=== PATIENT | male | born 1980 | race Caucasian/White ===

== ENCOUNTER 2021-07-01 18:05 | Emergency (ER) | payer SELFPAY ==
--- NOTE | 2021-07-01 18:22 | EDPHYS ---
Physician Documentation [facility] Name: Kenneth Franco Age: 41 yrs Sex: Male : 1980 Arrival Date: 07/01/2021 Time: 18:16 Bed Waiting Private MD: ED Physician Paula Cespedes HPI: 07/01 18:26 This 41 yrs old Male presents to ER via Ambulatory with complaints of Rash. kb 18:26 The patient's rash thought to be caused by Contact allergy. The rash is located on the kb body diffusely. The rash can be described as erythematous. Onset: The symptoms/episode began/occurred yesterday. Associated signs and symptoms: Pertinent positives: itching, Pertinent negatives: burning sensation, difficulty breathing, fever, nausea, Pain swelling of lips, swelling of throat, swelling of tongue, vomiting, wheezing. Severity of symptoms: At their worst the symptoms were moderate in the emergency department the symptoms are unchanged. The patient has not experienced similar symptoms in the past. The patient has not recently seen a physician. Pt reports he got into poison magaly yesterday and developed rash all over. Historical: - Allergies: 18:34 No Known Allergies; iw - Social history:: Smoking status: . ROS: 18:25 Constitutional: Negative for fever, chills, and weight loss. kb 18:25 Skin: Positive for rash, diffusely. 18:25 All other systems are negative. Exam: 18:25 Constitutional: This is a well developed, well nourished patient who is awake, alert, kb and in no acute distress. Head/Face: Normocephalic, atraumatic. ENT: Moist Mucous membranes Respiratory: Respirations even and unlabored. No increased work of breathing, no retractions or nasal flaring. MS/ Extremity: Pulses equal, no cyanosis. Neurovascular intact. Full, normal range of motion. Neuro: Awake and alert, GCS 15, oriented to person, place, time, and situation. Moves all extremities. Normal gait. Psych: Awake, alert, with orientation to person, place and time. Behavior, mood, and affect are within normal limits. 18:25 Skin: consistent with contact dermatitis, and is diffusely located. Vital Signs: 18:35 BP 150 / 84; Pulse 75; Resp 16; Temp 98.3; Pulse Ox 100% on R/A; iw MDM: 18:22 Patient medically screened. kb 18:24 Data reviewed: vital signs, nurses notes. Data interpreted: Pulse oximetry: on room air kb is 100 %. Interpretation: normal. Counseling: I had a detailed discussion with the patient and/or guardian regarding: the historical points, exam findings, and any diagnostic results supporting the discharge/admit diagnosis, the need for outpatient follow up, a family practitioner, to return to the emergency department if symptoms worsen or persist or if there are any questions or concerns that arise at home. Administered Medications: 18:34 Drug: predniSONE 40 mg Route: PO; iw 18:34 Drug: Pepcid (famotidine) 20 mg Route: PO; iw Disposition Summary: 07/01/21 18:22 Discharge Ordered Location: Home kb Condition: Stable kb Diagnosis - Allergic contact dermatitis due to plants, except food kb Followup: kb - With: Emergency Department - When: As needed - Reason: Worsening of condition Followup: kb - With: Private Physician - When: 2 - 3 days - Reason: Recheck today's complaints, Continuance of care, Re-evaluation by your physician Discharge Instructions: - Discharge Summary Sheet kb - Poison Magaly Dermatitis, [id number] kb - Contact Dermatitis, [id number] kb Forms: - Medication Reconciliation Form kb - Thank You Letter kb - Antibiotic Education kb - Prescription Opioid Use kb Prescriptions: - Pepcid 20 mg Oral Tablet - take 1 tablet by ORAL route every 12 hours for 5 days; 10 tablet; Refills: 0, kb Product Selection Permitted - Prednisone 20 mg Oral Tablet - take 1 tablet by ORAL route once daily for 5 days; 5 tablet; Refills: 0, kb Product Selection Permitted Addendum: 07/10/2021 22:54 Co-signature as Attending Physician, Paula Cespedes MD. valentin a2 Signatures: Jolly Martins FNP-C FNP-Melodie Elizabeth, J LUIS RN Paula Cespedes MD MD ma2
--- NOTE | 2021-07-01 18:22 | ER ---
Nurse's Notes [facility] Name: Kenneth Franco Age: 41 yrs Sex: Male : 1980 Arrival Date: 07/01/2021 Time: 18:16 Bed Waiting Private MD: Diagnosis: Allergic contact dermatitis due to plants, except food Presentation: 07/01 18:21 Chief complaint: Patient states: poison [place] since yesterday , diffuse itchy rash. iw Coronavirus screen: At this time, the client does not indicate any symptoms associated with coronavirus-19. Ebola Screen: Patient negative for fever greater than or equal to 101.5 degrees Fahrenheit, and additional compatible Ebola Virus Disease symptoms Patient denies exposure to infectious person. Patient denies travel to an Ebola-affected area in the 21 days before illness onset. No symptoms or risks identified at this time. Initial Sepsis Screen: Does the patient meet any 2 criteria? No. Patient's initial sepsis screen is negative. Does the patient have a suspected source of infection? No. Patient's initial sepsis screen is negative. Risk Assessment: Do you want to hurt yourself or someone else? Patient reports no desire to harm self or others. Onset of symptoms was July 01, 2021. 18:21 Method Of Arrival: Ambulatory iw 18:21 Acuity: JERMAINE 5 iw Historical: - Allergies: 18:34 No Known Allergies; iw - Social history:: Smoking status: . Vital Signs: 18:35 BP 150 / 84; Pulse 75; Resp 16; Temp 98.3; Pulse Ox 100% on R/A; iw ED Course: 18:16 Patient arrived in ED. as 18:17 [facility]C [facility] kb 18:17 Paula Cespedes MD is Attending Physician. kb 18:22 Triage completed. iw 18:35 Arm band placed on. iw Administered Medications: 18:34 Drug: predniSONE 40 mg Route: PO; iw 18:34 Drug: Pepcid (famotidine) 20 mg Route: PO; iw Outcome: 18:22 Discharge ordered by . kb 18:35 Patient left the ED. iw Signatures: Jolly Martins FNP-C FNP-Ckb Martinez, Amelia as Williams, Irene, RN RN iw
[2021-07-01 18:39] VITALS: BP 150/84; TEMP 98.3; O2SAT 100
[2021-07-01] MEDS ORDERED: predniSONE 20 MG TAB ONE (18:51)
[2021-07-01] MEDS ORDERED: FAMOTIDINE 20 MG TAB ONE (18:51)
== END 2021-07-01 18:35 | disposition home or self-care (01) ==
LOC: ER 18:05
DX: R21 Rash and other nonspecific skin eruption (principal); L23.7 Allergic contact dermatitis due to plants, except food
CPT/HCPCS: 99282; J7512

== ENCOUNTER 2021-09-15 16:48 | Emergency (ER) | payer SELFPAY ==
--- OUTSIDE RECORDS SUMMARY | 2021-09-15 16:51 | XMS REPORT | Continuity of Care Document ---
:[address] [facility] t Address [address] [place] [address] Care Team Providers Name Role Phone Cristino Townsend Attending Clinician Cristino CRUZ Attending Clinician Unavailable Robert Gomez MD Attending Clinician Robert GOMEZ Attending Clinician Unavailable Doctor Unassigned, Name Attending Clinician Unavailable PoFeliz guevara Main Attending Clinician Unavailable Pcp, Does Not Have A Attending Clinician Cristino Marroquin Attending Clinician Problems Condition Condition Condition Status Onset Resolution Last Treating Co mments Source Name Details Category Date Date Treatment Clinician Date No known No known Disease Unive rs active active ity of problems problems [facility] Allergies, Adverse Reactions, Alerts Allergy Allergy Status Severity Reaction(s) Onset Inactive Treating Comm ents Source Name Type Date Date Clinician NO KNOWN Drug Active Univers ALLERGIE Class ity of S [facility] Social History Social Habit Start Date Stop Date Quantity Comments Source Sex Assigned At Universit y of [facility] Exposure to Not sure [facility] SARS-CoV-2 [facility] (event) Branch Tobacco use and 2020-07-26 2020-07-26 Never used Universit y of exposure 00:00:00 00:00:00 [facility] Alcohol intake 2020-07-26 2020-07-26 Lifetime University of 00:00:00 00:00:00 non-drinker [facility] (finding) Branch History SDOH 2020-07-26 2020-07-26 1 University o f Alcohol Frequency 00:00:00 00:00:00 [place] [facility] History SDOH 2020-07-26 2020-07-26 99 University o f Alcohol Std 00:00:00 00:00:00 [place] [facility] Branch History SDOH 2020-07-26 2020-07-26 1 University o f Alcohol Binge 00:00:00 00:00:00 [facility] al Branch Smoking Status Start Date Stop Date Source Current every day smoker 2020-07-26 00:00:00 [facility] [place] Unknown if ever smoked [facility] Branch Medications Ordered Filled Start Stop Current Ordering Indication Dosage Frequency Signature Comments Components Source Medication Medication Date Date Medication? Clinician (SIG) Name Name traMADoL 50 0 Yes 4647 50mg Take 1 Univ ers mg tablet 1-06 tablet by ity o f 00:00: mouth [place] 00 every 4 Medical (four) Branch hours as needed for Pain (scale 7-10). Indication s: acute pain traMADoL 50 0 Yes 4647 50mg Take 1 Univ ers mg tablet 1-06 tablet by ity o f 00:00: mouth [place] 00 every 4 Medical (four) Branch hours as needed for Pain (scale 7-10). Indication s: acute pain traMADoL 50 Yes 4647 50mg Take 1 Univ ers mg tablet 1-06 tablet by ity o f 00:00: mouth [place] 00 every 4 Medical (four) Branch hours as needed for Pain (scale 7-10). Indication s: acute pain acetaminoph 2019-09 No 4647 1{tbl} Take 1 U nivers en-codeine 2-14 12-22 tablet by ity of (TYLENOL-CO 00:00: 05:59 [place] DE[place] #3[place] :00 every 4 Medical 300-30 mg (four) Branch tablet hours as needed for Pain (scale 4-6) for up to 7 days. Indication s: acute pain acetaminoph 2019-09 No 4647 1{tbl} Take 1 U nivers en-codeine 2-14 12-22 tablet by ity of (TYLENOL-CO 00:00: 05:[place] DE[place] #3[place] 00 :00 every 4 Medical 300-30 mg (four) Branch tablet hours as needed for Pain (scale 4-6) for up to 7 days. Indication s: acute pain acetaminoph 2019-09 No 4647 1{tbl} Take 1 U nivers en-codeine 2-14 12-22 tablet by ity of (TYLENOL-CO 00:00: 05:59 [place] DE[place] #3[place] 00 :00 every 4 Medical 300-30 mg (four) Branch tablet hours as needed for Pain (scale 4-6) for up to 7 days. Indication s: acute pain acetaminoph 2019- 2020- No 4647 1{tbl} Take 1 U nivers en-codeine 2-14 12-22 tablet by ity of (TYLENOL-CO 00:00: 05:[place] DE[place] #3[place] 00 :00 every 4 Medical 300-30 mg (four) Branch tablet hours as needed for Pain (scale 4-6) for up to 7 days. Indication s: acute pain acetaminoph 2020- Yes 4647 1{tbl} Take 1 Un pratibha en-codeine 1-14 tablet by ity of 300-30 mg 00:00: mouth [place] tablet 00 every 4 Medical (four) Branch hours as needed for Pain (scale 4-6). Indication s: acute pain acetaminoph 2020- Yes 4647 1{tbl} Take 1 Un pratibha en-codeine 1-14 tablet by ity of 300-30 mg 00:00: mouth [place] tablet 00 every 4 Medical (four) Branch hours as needed for Pain (scale 4-6). Indication s: acute pain acetaminoph 2020- Yes 4647 1{tbl} Take 1 Un pratibha en-codeine 1-14 tablet by ity of 300-30 mg 00:00: mouth [place] tablet 00 every 4 Medical (four) Branch hours as needed for Pain (scale 4-6). Indication s: acute pain acetaminoph 2020- Yes 4647 1{tbl} Take 1 Un pratibha en-codeine 1-14 tablet by ity of 300-30 mg 00:00: mouth [place] tablet 00 every 4 Medical (four) Branch hours as needed for Pain (scale 4-6). Indication s: acute pain acetaminoph 2020- Yes 4647 1{tbl} Take 1 Un pratibha en-codeine 1-14 tablet by ity of 300-30 mg 00:00: mouth [place] tablet 00 every 4 Medical (four) Branch hours as needed for Pain (scale 4-6). Indication s: acute pain acetaminoph 2020- Yes 4647 1{tbl} Take 1 Un pratibha en-codeine 1-14 tablet by ity of 300-30 mg 00:00: mouth [place] tablet 00 every 4 Medical (four) Branch hours as needed for Pain (scale 4-6). Indication s: acute pain acetaminoph 2020-1 Yes 4647 1{tbl} Take 1 Un pratibha en-codeine 1-14 tablet by ity of 300-30 mg 00:00: mouth [place] tablet 00 every 4 Medical (four) Branch hours as needed for Pain (scale 4-6). Indication s: acute pain acetaminoph 2020-1 Yes 4647 1{tbl} Take 1 Un pratibha en-codeine 1-14 tablet by ity of 300-30 mg 00:00: mouth [place] tablet 00 every 4 Medical (four) Branch hours as needed for Pain (scale 4-6). Indication s: acute pain acetaminoph 2020-1 Yes 4647 1{tbl} Take 1 Un pratibha en-codeine 1-14 tablet by ity of 300-30 mg 00:00: mouth [place] tablet 00 every 4 Medical (four) Branch hours as needed for Pain (scale 4-6). Indication s: acute pain acetaminoph 2020-1 Yes 4647 1{tbl} Take 1 Un pratibha en-codeine 1-14 tablet by ity of 300-30 mg 00:00: mouth [place] tablet 00 every 4 Medical (four) Branch hours as needed for Pain (scale 4-6). Indication s: acute pain acetaminoph 2020-1 Yes 4647 1{tbl} Take 1 Un pratibha en-codeine 1-14 tablet by ity of 300-30 mg 00:00: mouth [place] tablet 00 every 4 Medical (four) Branch hours as needed for Pain (scale 4-6). Indication s: acute pain acetaminoph 2020-1 Yes 4647 1{tbl} Take 1 Un pratibha en-codeine 1-14 tablet by ity of 300-30 mg 00:00: mouth [place] tablet 00 every 4 Medical (four) Branch hours as needed for Pain (scale 4-6). Indication s: acute pain acetaminoph 2020-1 Yes 4647 1{tbl} Take 1 Un pratibha en-codeine 1-14 tablet by ity of 300-30 mg 00:00: mouth [place] tablet 00 every 4 Medical (four) Branch hours as needed for Pain (scale 4-6). Indication s: acute pain acetaminoph 2020-1 Yes 4647 1{tbl} Take 1 Un pratibha en-codeine 1-14 tablet by ity of 300-30 mg 00:00: mouth [place] tablet 00 every 4 Medical (four) Branch hours as needed for Pain (scale 4-6). Indication s: acute pain acetaminoph 2020-1 Yes 4647 1{tbl} Take 1 Un pratibha en-codeine 1-14 tablet by ity of 300-30 mg 00:00: mouth [place] tablet 00 every 4 Medical (four) Branch hours as needed for Pain (scale 4-6). Indication s: acute pain acetaminoph 2020-1 Yes 4647 1{tbl} Take 1 Un pratibha en-codeine 1-14 tablet by ity of 300-30 mg 00:00: mouth [place] tablet 00 every 4 Medical (four) Branch hours as needed for Pain (scale 4-6). Indication s: acute pain acetaminoph 2020-1 Yes 4647 1{tbl} Take 1 Un pratibha en-codeine 1-14 tablet by ity of 300-30 mg 00:00: mouth [place] tablet 00 every 4 Medical (four) Branch hours as needed for Pain (scale 4-6). Indication s: acute pain acetaminoph 2020-1 Yes 4647 1{tbl} Take 1 Un pratibha en-codeine 1-14 tablet by ity of 300-30 mg 00:00: mouth [place] tablet 00 every 4 Medical (four) Branch hours as needed for Pain (scale 4-6). Indication s: acute pain acetaminoph 2020-1 Yes 4647 1{tbl} Take 1 Un pratibha en-codeine 1-14 tablet by ity of 300-30 mg 00:00: mouth [place] tablet 00 every 4 Medical (four) Branch hours as needed for Pain (scale 4-6). Indication s: acute pain amphetamine 2020-1 Yes 30mg Take 30 mg Univers -dextroamph 0-23 by mouth ity of etamine 30 00:00: every [place] mg 24 hr 00 morning. Medical capsule Branch amphetamine 2020-1 Yes 30mg Take 30 mg Univers -dextroamph 0-23 by mouth ity of etamine 30 00:00: every [place] mg 24 hr 00 morning. Medical capsule Branch amphetamine 2020-1 Yes 30mg Take 30 mg Univers -dextroamph 0-23 by mouth ity of etamine 30 00:00: every [place] mg 24 hr 00 morning. Medical capsule Branch amphetamine 2019-09 Yes 30mg Take 30 mg Univers -dextroamph 0-23 by mouth ity of etamine 30 00:00: every [place] mg 24 hr 00 morning. Medical capsule Branch amphetamine 2019-09 Yes 30mg Take 30 mg Univers -dextroamph 0-23 by mouth ity of etamine 30 00:00: every [place] mg 24 hr 00 morning. Medical capsule Branch amphetamine 2019-09 Yes 30mg Take 30 mg Univers -dextroamph 0-23 by mouth ity of etamine 30 00:00: every [place] mg 24 hr 00 morning. Medical capsule Branch amphetamine 2019-09 Yes 30mg Take 30 mg Univers -dextroamph 0-23 by mouth ity of etamine 30 00:00: every [place] mg 24 hr 00 morning. Medical capsule Branch amphetamine 2019-09 Yes 30mg Take 30 mg Univers -dextroamph 0-23 by mouth ity of etamine 30 00:00: every [place] mg 24 hr 00 morning. Medical capsule Branch amphetamine 2019-09 Yes 30mg Take 30 mg Univers -dextroamph 0-23 by mouth ity of etamine 30 00:00: every [place] mg 24 hr 00 morning. Medical capsule Branch amphetamine 2019-09 Yes 30mg Take 30 mg Univers -dextroamph 0-23 by mouth ity of etamine 30 00:00: every [place] mg 24 hr 00 morning. Medical capsule Branch amphetamine 2019-09 Yes 30mg Take 30 mg Univers -dextroamph 0-23 by mouth ity of etamine 30 00:00: every [place] mg 24 hr 00 morning. Medical capsule Branch amphetamine 2019-09 Yes 30mg Take 30 mg Univers -dextroamph 0-23 by mouth ity of etamine 30 00:00: every [place] mg 24 hr 00 morning. Medical capsule Branch amphetamine 2019-09 Yes 30mg Take 30 mg Univers -dextroamph 0-23 by mouth ity of etamine 30 00:00: every [place] mg 24 hr 00 morning. Medical capsule Branch amphetamine 2019-09 Yes 30mg Take 30 mg Univers -dextroamph 0-23 by mouth ity of etamine 30 00:00: every [place] mg 24 hr 00 morning. Medical capsule Branch amphetamine 2019-09 Yes 30mg Take 30 mg Univers -dextroamph 0-23 by mouth ity of etamine 30 00:00: every [place] mg 24 hr 00 morning. Medical capsule Branch amphetamine 2020- Yes 30mg Take 30 mg Univers -dextroamph 0-23 by mouth ity of etamine 30 00:00: every [place] mg 24 hr 00 morning. Medical capsule Branch amphetamine 2020- Yes 30mg Take 30 mg Univers -dextroamph 0-23 by mouth ity of etamine 30 00:00: every [place] mg 24 hr 00 morning. Medical capsule Branch diazePAM 5 2019-09 Yes 5mg Take 5 mg Un pratibha mg tablet 0-13 by mouth 2 ity of 00:00: (two) [place] 00 times Medical daily. Branch diazePAM 5 2019- Yes 5mg Take 5 mg Un pr[place]ibha mg tablet 0-13 by mouth 2 ity of 00:00: (two) [place] 00 times Medical daily. Branch diazePAM 5 2019-09 Yes 5mg Take 5 mg Un pratibha mg tablet 0-13 by mouth 2 ity of 00:00: (two) [place] 00 times Medical daily. Branch diazePAM 5 2019-09 Yes 5mg Take 5 mg Un pratibha mg tablet 0-13 by mouth 2 ity of 00:00: (two) [place] 00 times Medical daily. Branch diazePAM 5 2019-09 Yes 5mg Take 5 mg Un pratibha mg tablet 0-13 by mouth 2 ity of 00:00: (two) [place] 00 times Medical daily. Branch diazePAM 5 2019-09 Yes 5mg Take 5 mg Un pr[place]ibha mg tablet 0-13 by mouth 2 ity of 00:00: (two) [place] 00 times Medical daily. Branch diazePAM 5 2019-09 Yes 5mg Take 5 mg Un pr[place]ibha mg tablet 0-13 by mouth 2 ity of 00:00: (two) [place] 00 times Medical daily. Branch diazePAM 5 2019-09 Yes 5mg Take 5 mg Un [place] mg tablet 0-13 by mouth 2 ity of 00:00: (two) [place] 00 times Medical daily. Branch diazePAM 5 2019-09 Yes 5mg Take 5 mg Un pratibha mg tablet 0-13 by mouth 2 ity of 00:00: (two) [place] 00 times Medical daily. Branch diazePAM 5 2019-09 Yes 5mg Take 5 mg Un pratibha mg tablet 0-13 by mouth 2 ity of 00:00: (two) [place] 00 times Medical daily. Branch diazePAM 5 2020-1 Yes 5mg Take 5 mg Un pr[place]ibha mg tablet 0-13 by mouth 2 ity of 00:00: (two) [place] 00 times Medical daily. Branch diazePAM 5 2019-09 Yes 5mg Take 5 mg Un pr[place]ibha mg tablet 0-13 by mouth 2 ity of 00:00: (two) [place] 00 times Medical daily. Branch diazePAM 5 2019-09 Yes 5mg Take 5 mg Un pr[place]ibha mg tablet 0-13 by mouth 2 ity of 00:00: (two) [place] 00 times Medical daily. Branch diazePAM 5 2019-09 Yes 5mg Take 5 mg Un [place] mg tablet 0-13 by mouth 2 ity of 00:00: (two) [place] 00 times Medical daily. Branch diazePAM 5 2019-09 Yes 5mg Take 5 mg Un [place] mg tablet 0-13 by mouth 2 ity of 00:00: (two) [place] 00 times Medical daily. Branch diazePAM 5 2019-09 Yes 5mg Take 5 mg Un pr[place] mg tablet 0-13 by mouth 2 ity of 00:00: (two) [place] 00 times Medical daily. Branch diazePAM 5 2019-09 Yes 5mg Take 5 mg Un pr[place]ha mg tablet 0-13 by mouth 2 ity of 00:00: (two) [place] 00 times Medical daily. Branch Vital Signs Vital Name Observation Time Observation Value Comments Source Systolic blood 2020-09-14 19:43:00 114 mm[Hg] Univer sity [facility] Diastolic blood 2020-09-14 19:43:00 77 mm[Hg] Unive rsity [facility] Heart rate 2020-09-14 19:43:00 84 /min [facility] Body height 2020-09-14 19:43:00 180.3 cm [facility] Body weight 2020-09-14 19:43:00 72.576 kg [facility] BMI 2020-09-14 19:43:00 22.32 kg/m2 [facility] Systolic blood 2020-08-24 19:46:00 121 mm[Hg] Univer sity [facility] Diastolic blood 2020-08-24 19:46:00 73 mm[Hg] Unive rsity of [facility] Heart rate 2020-08-24 19:46:00 63 /min [facility] Body height 2020-08-24 19:46:00 180.3 cm Universi ty of [place] [facility] Body weight 2020-08-24 19:46:00 72.394 kg Universi ty of [place] [facility] BMI 2020-08-24 19:46:00 22.26 kg/m2 Universi ty of [facility] Branch Systolic blood 2020-07-26 19:22:00 131 mm[Hg] Univer sity of pressure [facility] Diastolic blood 2020-07-26 19:22:00 85 mm[Hg] Unive rsity of pressure [facility] Branch Heart rate 2020-07-26 19:22:00 76 /min Universi ty of [facility] Branch Body height 2020-07-26 19:22:00 177.8 cm Universi ty of [facility] Branch Body weight 2020-07-26 19:22:00 79.379 kg Universi ty of [facility] Branch BMI 2020-07-26 19:22:00 25.11 kg/m2 Universi ty of [facility] Branch Systolic blood 2020-07-23 16:54:00 100 mm[Hg] Univer sity of pressure [facility] Branch Diastolic blood 2020-07-23 16:54:00 71 mm[Hg] Unive rsity of pressure [facility] Branch Heart rate 2020-07-23 16:54:00 88 /min Universi ty of [facility] Body temperature 2020-07-23 16:54:00 36.33 Katrin [facility] 2020-07-23 16:54:00 20 /min [facility] Body weight 2020-07-23 16:54:00 79.379 kg Universi ty of [facility] Oxygen saturation in 2020-07-23 16:54:00 100 /min [facility] Arterial blood by [facility] Pulse oximetry Branch Procedures Procedure Date / Time Performing Clinician Source Performed XR HAND <3 VW RIGHT 2020-09-14 19:45:03 [facility] XR HAND <3 VW RIGHT 2020-08-24 20:09:11 Nile Cruz Universi ty [facility] NON [facility] 2020-08-03 06:01:00 Doctor Unassigned, No Univ [facility] DOCUMENTATION Name Medical Branch XR CHEST 1 VW 2020-07-29 18:59:03 Kojo Gomez [facility] CONSENT/REFUSAL FOR 2020-07-26 19:13:17 Doctor Unassigned, No [facility] XR HAND 3+ VW RIGHT 2020-07-23 17:29:23 Windy Azevedo [facility] NOTICE OF PRIVACY 2020-07-23 16:48:00 Doctor Unassigned, No [facility] Name [facility] Encounters Start End Encounter Admission Attending Care Care Encounter Source Date/Time Date/Time Type Type Clinicians Facility Department ID 2020-09-14 2020-09-14 [facility] [id number] Univers 13:45:02 23:59:00 Encounter Nile Gregg [facility] [id number] ity of Surgical [id number] [place] as Specialti [phone] Me dical es 809 [facility]3] 2020-09-14 2020-09-14 Office [facility] [id number] Univers 13:39:17 13:54:17 Visit Nile Gregg [facility] [id number] it y of Surgical [id number] [place] Specialti [phone] Me dical es 198 [facility]3] 2020-09-14 2020-09-14 [facility] [id number] Univers 13:15:00 13:15:00 [facility] [id number]-14 2020-09-14 [facility] [id number] Univers 13:15:00 13:15:00 [facility] 2020-08-24 2020-08-24 [facility] [id number] Univers 14:09:11 23:59:00 Encounter Nile [facility] [id number] ity of Surgical [id number] [place] Specialti [phone] Me dical es 809 [facility]3] 2020-08-24 2020-08-24 [facility] [id number] Univers 13:45:00 13:45:[id number] [address]y [facility] 2020-08-24 2020-08-24 Outpatient [facility] [id number] Univers 13:45:00 13:45:00 NILE ity of [facility] 2020-08-24 2020-08-24 [facility] [id number] Univers 13:29:37 13:44:37 Visit Nile Mccoy [id number] it y of Surgical [id number] [place] Specialti [phone] Me dical es 198 [facility]3] 2020-08-18 2020-08-18 Telephone [facility] [id number] Univers 00:00:00 00:00:00 Nile Gregg [facility] [id number] it y of Surgical [id number] [place] Specialti [phone] [place] 198 [facility]3] 2020-08-03 2020-08-03 [facility] [id number] Univers 11:52:00 23:59:00 Encounter Kojo MAHAJAN [id number] [id number] [id number] [facility] [address] [place] 2020-08-03 2020-08-03 [facility] N[facility] [id number] Univers 00:00:00 00:00:[address] [facility] 2020-08-03 2020-08-03 Orders Doctor PRABHAKAR [id number] Univers 00:00:00 00:00:00 Only Unassigned, DUKE [id number] ity of [facility] [id number] [place] as [phone] [facility] 00[address] [place] 2020-07-29 2020-07-29 [facility] [id number] Univers 12:36:50 23:59:00 Encounter Kojo [place] [id number] ity [id number] [phone] [facility] 807 [place] 2020-07-29 2020-07-29 Row Boss Hoeing [place], Adc Lab Main [facility] [id number] Univers 12:32:50 12:47:50 Visit Kojo Gomez [place] [id number] ity of [id number] [phone] [place] dical nal 353 [facility] 2020-07-29 2020-07-[address] [facility] [id number] Univers 12:30:00 12:30:[address] [facility] 2020-07-29 2020-07-29 [facility] [id number] Univers 12:30:00 12:30:[address] [facility] 2020-07-29 2020-07-29 Telephone [facility], [facility] [id number] Univers 00:00:00 00:00:00 Patient PRIMARY [id number] it y of Does Not CARE [id number] [place] as Have A PAVILLION [id number] [place] dical 198 [place] 2020-07-28 2020-07-28 Telephone Jason [facility] [id number] Univers 00:00:00 00:00:00 Kojo Jones [facility] [id number] it y of Surgical [id number] [place] Specialti [id number] [place] dical es 198 [facility]3] 2020-07-26 2020-07-26 Outpatient R KELSEA [facility] [id number] Univers 13:45:00 13:45:[address] [facility] 2020-07-26 2020-07-26 Office Kelsea [facility] [id number] Univers 13:14:20 13:29:20 Visit Nile Gregg [facility] [id number] it y of Surgical [id number] [place] Specialti [phone] [place] dical [place] 198 [facility]3] 2020-07-26 2020-07-26 Orders Doctor RADFORD [id number] Univers 00:00:00 00:00:00 Only Unassigned, DUKE [id number] ity of [facility] 4.2.7.2.686 [place] as [id number] [facility] 009 [place] 2020-07-26 2020-07-26 Telephone Jason [facility] [id number] Univers 00:00:00 00:00:00 Kojo Jones Health [id number] it y of Surgical [id number] [place] Specialti [id number] [place] dical es 198 [facility]3] 2020-07-26 2020-07-26 Telephone Kelsea [facility] [id number] Univers 00:00:00 00:00:00 Nile Gregg [facility] [id number] it y of Surgical [id number] [place] Specialti [phone] [place] dical es 198 [facility]3] 2020-07-23 2020-07-23 Emergency Jolly, [facility] [id number] Univers 10:58:00 12:29:00 Windy Gregg [place] [id number] i ty of [id number] [id number] [facility] 084 [place] 2020-07-23 2020-07-23 Emergency X [facility] ERT [id number] Univers 10:48:00 10:48:00 ity of [facility] Results Test Description Test Time Test Comments Results Result Sour e Comments XR HAND <3 2020-09-0 Comminuted fracture Un iversity of RIGHT 6 of the proximal fifth [facility] Medical 20:00:38 metacarpal shows some Bra nch signs of healing XR HAND <3 2020-08-1 Comminuted fracture Un iversity of RIGHT 6 proximal fifth [facility] 20:45:30 metatacarpal with 2 Branc h pins in place show signs of callus formation. XR CHEST 1 2020-07-11 Impression: No acute U niversity of 0 cardiac pulmonary [facility] edical 19:03:48 abnormality.Exam: XR Bran CHEST 1 07/29/2020 12:56 PM Clinical History: Surgery Comparison: None Technique: frontal view of the chest Findings: The lungs are clear. ?No pleural effusion. ?No pneumothorax. The cardiomediastinal silhouette appears normal. No acute osseous abnormality. [facility], Radiant Results Inft User - 07/29/2020 1:05 PM CSTExam: XR CHEST 1 VW 07/29/2020 12:56 PMClinical History: Surgery Comparison: NoneTechnique: frontal view of the chestFindings:The lungs are clear. No pleural effusion. No pneumothorax. The cardiomediastinal silhouette appears normal. No acute osseous abnormality. IMPRESSIONImpression: No acute cardiac pulmonary abnormality.
[2021-09-15] MEDS ORDERED: IBUPROFEN 400 MG TAB ONE ×2 (20:02→20:05)
[2021-09-15] MEDS ORDERED: FAMOTIDINE 20 MG TAB ONE ×2 (20:02→20:05)
[2021-09-15] MEDS ORDERED: predniSONE 20 MG TAB ONE ×2 (20:03→20:05)
--- NOTE | 2021-09-15 20:19 | EDPHYS ---
Physician Documentation [facility] Name: Kenneth Franco Age: 41 yrs Sex: Male : 1980 Arrival Date: 09/15/2021 Time: 16:49 Bed 10 Private MD: ED Physician Scot Vivar HPI: 09/15 19:42 This 41 yrs old Male presents to ER via Ambulatory with complaints of Elbow Pain, kdr Numbness - fingers. 19:42 The patient or guardian complains of decreased range of motion, pain, that is acute. kdr The complaints affect the left antecubital area and left elbow. Context: The problem was sustained at home, The pain has been ongoing for about 8 months but in the last few weeks has gotten precipitously worse. Patient has been performing some manual labor and the pain has not been relieved as it has in the past with anti-inflammatories. Patient denies any specific injury.. Onset: The symptoms/episode began/occurred gradually, 8 month(s) ago. Treatment prior to arrival includes: no previous treatment. Treatment prior to arrival includes: Patient had taken Flexeril and other anti-inflammatories in the past without sustained relief or resolution. Modifying factors: The symptoms are alleviated by remaining still, the symptoms are aggravated by movement, bending arm. Associated signs and symptoms: The patient has no apparent associated signs or symptoms. Severity of symptoms: At their worst the symptoms were moderate, severe, incapacitating, last night. The patient has experienced similar episodes in the past, chronically, but today's symptoms are worse, more painful. The patient has not recently seen a physician. Historical: - Allergies: 17:16 No Known Allergies; tw2 - Home Meds: 17:16 diazepam 5 mg Oral tab 1 tab as needed [Active]; Adderall XR 20 mg Oral cp24 1 cap once tw2 daily [Active]; - PMHx: 17:16 ADD/ADHD; left elbow tendonitis; tw2 ROS: 19:42 Constitutional: Negative for fever, chills, and weight loss, Eyes: Negative for injury, kdr pain, redness, and discharge, ENT: Negative for injury, pain, and discharge, Neck: Negative for injury, pain, and swelling, Cardiovascular: Negative for chest pain, palpitations, and edema, Respiratory: Negative for shortness of breath, cough, wheezing, and pleuritic chest pain, Abdomen/GI: Negative for abdominal pain, nausea, vomiting, diarrhea, and constipation, Back: Negative for injury and pain, : Negative for injury, bleeding, discharge, and swelling, Skin: Negative for injury, rash, and discoloration, Neuro: Negative for headache, weakness, numbness, tingling, and seizure activity. Psych: Negative for depression, anxiety, suicide ideation, homicidal ideation, and hallucinations, Allergy/Immunology: Negative for hives, rash, and allergies, Endocrine: Negative for neck swelling, polydipsia, polyuria, polyphagia, and marked weight changes, Hematologic/Lymphatic: Negative for swollen nodes, abnormal bleeding, and unusual bruising. 19:42 MS/extremity: Positive for decreased range of motion, pain, paresthesias, tenderness, Patient has paresthesias to his left lateral fingers 3 4 and 5. Exam: 19:42 Constitutional: This is a well developed, well nourished patient who is awake, alert, kdr and in no acute distress. Head/Face: Normocephalic, atraumatic. 19:42 Musculoskeletal/extremity: Extremities: grossly normal except: noted in the left elbow: ROM: limited active range of motion, limited passive range of motion, in the left arm, Circulation is intact in all extremities. numbness, Minor decreased sensation in the left fingers, 3, 4 and 5 Vital Signs: 17:18 BP 120 / 87; Pulse 59; Resp 17; Temp 97.2(TE); Pulse Ox 100% on R/A; Pain 0/10; tw2 20:48 BP 135 / 67; Pulse 62; Resp 16; Temp 98.0; Pulse Ox 100% ; lt3 17:18 "when i got to move my left arm its a 10" tw2 MDM: 19:42 Data reviewed: vital signs, nurses notes, radiologic studies. Counseling: I had a kdr detailed discussion with the patient and/or guardian regarding: the historical points, exam findings, and any diagnostic results supporting the discharge/admit diagnosis, radiology results, the need for outpatient follow up. 20:19 Patient medically screened. kdr 09/15 19:41 Order name: Elbow Left 3 View XRAY; Complete Time: 20:48 kdr 09/15 20:17 Order name: Edgar wrap-joint: Left elbow ; Complete Time: 20:48 kdr Administered Medications: 20:00 Drug: Ibuprofen 800 mg Route: PO; bb 21:10 Follow up: Response: No adverse reaction bb 20:00 Drug: predniSONE 60 mg Route: PO; bb 21:10 Follow up: Response: No adverse reaction bb 20:00 Drug: Pepcid (famotidine) 20 mg Route: PO; bb 21:11 Follow up: Response: No adverse reaction bb Disposition Summary: 09/15/21 20:19 Discharge Ordered Location: Home kdr Problem: new kdr Symptoms: have improved kdr Condition: Stable kdr Diagnosis - Pain in left elbow kdr Followup: kdr - With: Private Physician - When: 2 - 3 days - Reason: If symptoms return, Further diagnostic work-up, Recheck today's complaints, Continuance of care, Re-evaluation by your physician Followup: kdr - With: Jim Olson MD - When: 2 - 3 days - Reason: If symptoms return, Further diagnostic work-up, Recheck today's complaints, Continuance of care, Re-evaluation by your physician Discharge Instructions: - Discharge Summary Sheet kdr - Musculoskeletal Pain kdr - Joint Pain, [id number] kdr Forms: - Medication Reconciliation Form kdr - Thank You Letter kdr - Prescription Opioid Use kdr Prescriptions: - Ibuprofen 600 mg Oral Tablet - take 1 tablet by ORAL route every 6 hours As needed take with food; 30 tablet; kdr Refills: 0, Product Selection Permitted - Tramadol 50 mg Oral Tablet - take 1 tablet by ORAL route every 8 hours as needed; 12 tablet; Refills: 0, kdr Product Selection Permitted - Medrol (Steven) 4 mg Oral Tablets, Dose Pack - take 1 tablet by ORAL route as directed - follow package instructions; 1 kdr packet; Refills: 0, Product Selection Permitted Signatures: Dispatcher [employer] Scot Coffey MD MD kdr Lorena Fletcher RN RN bb Wise, Tara, RN RN tw2 Corrections: (The following items were deleted from the chart) 17:18 17:16 Home Meds: None; tw2 tw2
--- NOTE | 2021-09-15 20:19 | ER ---
Nurse's Notes [facility] Name: Kenneth Franco Age: 41 yrs Sex: Male : 1980 Arrival Date: 09/15/2021 Time: 16:49 Bed 10 Private MD: Diagnosis: Pain in left elbow Presentation: 09/15 17:14 Chief complaint: Patient states: i have always had tendonitis and it has gotten worse. tw2 it seems like it is on a whole another level. my LEFT elbow. i havent seen an orthopedic in like 15 years. i tried flexeril about 5-6 weeks ago and it didn't help. and gabapentin didn't help either. it is not letting me sleep. if i move at night i wake up screaming. Coronavirus screen: At this time, the client does not indicate any symptoms associated with coronavirus-19. Ebola Screen: Patient denies travel to an Ebola-affected area in the 21 days before illness onset. Initial Sepsis Screen: Does the patient meet any 2 criteria? No. Patient's initial sepsis screen is negative. Does the patient have a suspected source of infection? No. Patient's initial sepsis screen is negative. Risk Assessment: Do you want to hurt yourself or someone else? Patient reports no desire to harm self or others. Onset of symptoms was September 15, 2021. 17:14 Method Of Arrival: Ambulatory tw2 17:14 Acuity: JERMAINE 4 tw2 Triage Assessment: 17:20 General: Appears in no apparent distress. Behavior is calm, cooperative, appropriate tw2 for age. Pain: Complains of pain in left elbow. Historical: - Allergies: 17:16 No Known Allergies; tw2 - Home Meds: 17:16 diazepam 5 mg Oral tab 1 tab as needed [Active]; Adderall XR 20 mg Oral cp24 1 cap once tw2 daily [Active]; - PMHx: 17:16 ADD/ADHD; left elbow tendonitis; tw2 Screenin:40 Abuse screen: Denies threats or abuse. Nutritional screening: No deficits noted. bb Tuberculosis screening: No symptoms or risk factors identified. Fall Risk None identified. Assessment: 19:40 General: Appears in no apparent distress. Behavior is calm, cooperative. Pain: bb Complains of pain in left elbow. Neuro: Level of Consciousness is awake, alert, obeys commands, Oriented to person, place, time, situation. Cardiovascular: Capillary refill < 3 seconds Patient's skin is warm and dry. Respiratory: Respiratory effort is even, unlabored. GI: No signs and/or symptoms were reported involving the gastrointestinal system. Derm: Skin is pink, warm \\T\\ dry. Musculoskeletal: Circulation, motion, and sensation intact. Reports pain in left elbow. 21:09 Reassessment: Patient is alert, oriented x 3, equal unlabored respirations, skin bb warm/dry/pink. pt verbalized understanding of and agrees to plan of care discharge instructions given pt ambulated with steady gait to exit. Vital Signs: 17:18 BP 120 / 87; Pulse 59; Resp 17; Temp 97.2(TE); Pulse Ox 100% on R/A; Pain 0/10; tw2 20:48 BP 135 / 67; Pulse 62; Resp 16; Temp 98.0; Pulse Ox 100% ; lt3 17:18 "when i got to move my left arm its a 10" tw2 ED Course: 16:49 Patient arrived in ED. as 17:16 Triage completed. tw2 17:20 Arm band placed on. tw2 19:32 Scot Vivar MD is Attending Physician. kdr 19:40 Patient has correct armband on for positive identification. bb 19:40 No provider procedures requiring assistance completed. Patient did not have IV access bb during this emergency room visit. 19:54 Lorena Fletcher, J LUIS is Primary Nurse. bb 20:18 Jim Olson MD is Referral Physician. kdr 20:19 Elbow Left 3 View XRAY In Process Unspecified. EDMS 20:48 Edgar wrap to left elbow. lt3 Administered Medications: 20:00 Drug: Ibuprofen 800 mg Route: PO; bb 21:10 Follow up: Response: No adverse reaction bb 20:00 Drug: predniSONE 60 mg Route: PO; bb 21:10 Follow up: Response: No adverse reaction bb 20:00 Drug: Pepcid (famotidine) 20 mg Route: PO; bb 21:11 Follow up: Response: No adverse reaction bb Outcome: 20:19 Discharge ordered by . kdr 21:11 Discharged to home ambulatory. bb 21:11 Condition: stable 21:11 Discharge instructions given to patient, Instructed on discharge instructions, follow up and referral plans. no driving heavy equipment, medication usage, Demonstrated understanding of instructions, follow-up care, medications, Prescriptions given X 3. 21:11 Patient left the ED. bb Signatures: Dispatcher [employer] EDMS Scot Vivar MD MD kdr Martinez, Amelia as Ballard, Brenda RN RN bb Halie Mehta RN RN tw2 Contreras, Terrie lt3 Corrections: (The following items were deleted from the chart) 17:18 17:16 Home Meds: None; tw2 tw2 17:20 17:14 Chief complaint: Patient states: i have always had tendonitis and it has gotten tw2 worse. it seems like it is on a whole another level. my LEFT elbow. i havent seen an orthopedic in like 15 years. i tried flexeril about 5-6 weeks ago and it didn't help. tw2
--- NOTE | 2021-09-15 20:46 | RAD REPORT ---
EXAM DESCRIPTION: RAD - Elbow Left 3 View - 09/15/2021 8:19 pm CLINICAL HISTORY: PAIN COMPARISON: No comparisons FINDINGS: No acute fracture. No malalignment. No significant focal degenerative changes. IMPRESSION: No acute osseous abnormality involving the left elbow.
[2021-09-15 21:37] VITALS: BP 135/67; TEMP 98; O2SAT 100
== END 2021-09-15 21:11 | disposition home or self-care (01) ==
LOC: ER 16:48
DX: M25.522 Pain in left elbow (principal)
CPT/HCPCS: 99284; J7512

== ENCOUNTER 2022-02-02 02:15 | Emergency (ER) | payer SELFPAY ==
--- OUTSIDE RECORDS SUMMARY | 2022-02-02 02:18 | XMS REPORT | Continuity of Care Document ---
:1980 Author Organization [facility] t Address [address] [place] [address] Care Team Providers Name Role Phone Cristino [...] rs active active ity of problems problems [facility] Allergies, Adverse Reactions, Alerts Allergy Allergy Status Severity Reaction(s) Onset Inactive Treating Comm ents Source Name Type Date Date Clinician NO KNOWN Drug Active Univers ALLERGIE Class ity of S [facility] Social History Social Habit Start Date Stop Date Quantity Comments Source Sex Assigned At Universit y of [facility] Exposure to Not sure [facility] SARS-CoV-2 [facility] (event) Branch Tobacco use and 2020-07-26 2020-07-26 Never used Universit y of exposure 00:00:00 00:00:00 [facility] Alcohol intake 2020-07-26 2020-07-26 Lifetime University of 00:00:00 00:00:00 non-drinker [facility] (finding) Branch History SDOH 2020-07-26 2020-07-26 1 University o f Alcohol Frequency 00:00:00 00:00:00 [place] [facility] History SDOH 2020-07-26 2020-07-26 99 University o f Alcohol Std 00:00:00 00:00:00 [place] [facility] Branch History SDOH 2020-07-26 2020-07-26 1 University o f Alcohol Binge 00:00:00 00:00:00 [facility] al Branch Smoking Status Start Date Stop Date Source Current every day smoker 2020-07-26 00:00:00 [facility] [place] Unknown if ever smoked [facility] Branch Medications Ordered Filled Start Stop Current [...] [facility] Diastolic blood 2020-09-14 19:43:00 77 mm[Hg] Unive rsity [facility] Heart rate 2020-09-14 19:43:00 84 /min [facility] Body height 2020-09-14 19:43:00 180.3 cm [facility] Body weight 2020-09-14 19:43:00 72.576 kg [facility] BMI 2020-09-14 19:43:00 22.32 kg/m2 [facility] Systolic blood 2020-08-24 19:46:00 121 mm[Hg] Univer sity [facility] Diastolic blood 2020-08-24 19:46:00 73 mm[Hg] Unive rsity of [facility] Heart rate 2020-08-24 19:46:00 63 /min [facility] Body height 2020-08-24 19:46:00 180.3 cm Universi ty of [place] [facility] Body weight 2020-08-24 19:46:00 72.394 kg Universi ty of [place] [facility] BMI 2020-08-24 19:46:00 22.26 kg/m2 Universi ty of [facility] Branch Systolic blood 2020-07-26 19:22:00 131 mm[Hg] Univer sity of pressure [facility] Diastolic blood 2020-07-26 19:22:00 85 mm[Hg] Unive rsity of pressure [facility] Branch Heart rate 2020-07-26 19:22:00 76 /min Universi ty of [facility] Branch Body height 2020-07-26 19:22:00 177.8 cm Universi ty of [facility] Branch Body weight 2020-07-26 19:22:00 79.379 kg Universi ty of [facility] Branch BMI 2020-07-26 19:22:00 25.11 kg/m2 Universi ty of [facility] Branch Systolic blood 2020-07-23 16:54:00 100 mm[Hg] Univer sity of pressure [facility] Branch Diastolic blood 2020-07-23 16:54:00 71 mm[Hg] Unive rsity of pressure [facility] Branch Heart rate 2020-07-23 16:54:00 88 /min Universi ty of [facility] Body temperature 2020-07-23 16:54:00 36.33 Katrin [facility] Respiratory rate 2020-07-23 16:54:00 20 /min [facility] Body weight 2020-07-23 16:54:00 79.379 kg Universi ty of [facility] Oxygen saturation in 2020-07-23 16:54:00 100 /min [facility] Arterial blood by [facility] Pulse oximetry Branch Procedures Procedure Date / Time Performing Clinician Source Performed XR HAND <3 VW RIGHT 2020-09-14 19:45:03 Nile [facility] XR HAND <3 VW RIGHT 2020-08-24 20:09:11 Nile Cruz Universi ty [facility] NON [facility] 2020-08-03 06:01:00 Doctor Unassigned, No Univ [facility] DOCUMENTATION Name Medical Branch XR CHEST 1 VW 2020-07-29 18:59:03 Kojo Gomez [facility] CONSENT/REFUSAL FOR 2020-07-26 19:13:17 Doctor Unassigned, No [facility] Name [facility] XR HAND 3+ VW RIGHT 2020-07-23 17:29:23 Windy Azevedo [facility] NOTICE OF PRIVACY 2020-07-23 16:48:00 Doctor Unassigned, No Univ [facility] PRACT[facility] Name [facility] Encounters Start End Encounter Admission Attending Care Care Encounter Source Date/Time Date/Time Type Type Clinicians Facility Department ID 2020-09-14 2020-09-14 [facility] [id number] Univers 13:45:02 23:59:00 Encounter Nile Gregg [facility] [id number] ity of Surgical [id number] [place] as Specialti [id number] Me dical es 809 [facility] 2020-09-14 2020-09-14 Office [facility] [id number] Univers 13:39:17 13:54:17 Visit Nile Gregg [facility] [id number] it y of Surgical [id number] [place] as Specialti [id number] Me dical es 198 [facility] 2020-09-14 2020-09-14 [id number] Univers 13:15:00 13:15:00 [facility] [id number] [facility]-09-14 2020-09-14 [facility] [id number] Univers 13:15:00 13:15:00 [facility] 2020-08-24 2020-08-24 [facility] [id number] Univers 14:09:11 23:59:00 Encounter Nile [facility] [id number] ity of Surgical [id number] [place] Specialti [id number] Me dical es 809 [facility] 2020-08-24 2020-08-24 [facility] [id number] Univers 13:45:00 13:45:00 NILE [id number] ity [facility] 2020-08-24 2020-08-24 [facility] [id number] Univers 13:45:00 13:45:00 NILE ity of [facility] 2020-08-24 2020-08-24 [facility] [id number] Univers 13:29:37 13:44:37 Visit Nile Mccoy [id number] it y of Surgical [id number] [place] as Specialti [id number] Me dical es 198 [facility] 2020-08-18 2020-08-18 Telephone [facility] [id number] Univers 00:00:00 00:00:00 Nile Gregg [facility] [id number] it y of Surgical [id number] [place] Specialti [id number] [place] dical [place] 198 [facility] 2020-08-03 2020-08-03 [facility] [id number] Univers 11:52:00 23:59:00 Encounter Kojo MAHAJAN [id number] [id number] [id number] [facility] 043 [place] 2020-08-03 2020-08-03 Outpatient [facility] NUT [id number] Univers 00:00:00 00:00:00 KOJO garzakirill [facility] 2020-08-03 2020-08-03 Orders Doctor PRABHAAKR [id number] Univers 00:00:00 00:00:00 Only Unassigned, DUKE [id number] ity of [place] [facility] [id number] [place] as [phone] [facility] 009 [place] 2020-07-29 2020-07-29 [facility] [id number] Univers 12:36:50 23:59:00 Encounter Kojo Green [id number] [id number] [id number] [facility] 807 [place] 2020-07-29 2020-07-29 Regulatory Consultant [place], [facility] Main [facility] 1.2.8 [id number] Univers 12:32:50 12:47:50 Visit Kojo Gomez [place] [id number] [id number] [phone] [place] dical nal 353 [facility] 2020-07-29 2020-07-29 Outpatient R [facility] [id number] Univers 12:30:00 12:30:00 ity [facility] 2020-07-29 2020-07-29 [facility] [id number] Univers 12:30:00 12:30:00 KOJO mccray [facility] 2020-07-29 2020-07-29 Telephone [facility], [facility] [id number] Univers 00:00:00 00:00:00 Patient PRIMARY [id number] it y of Does Not CARE [id number] [place] as Have A PAVILLION [id number] [place] dical 198 [place] 2020-07-28 2020-07-28 Telephone Jason [facility] [id number] Univers 00:00:00 00:00:00 Kojo Jones [facility] [id number] it y of Surgical [id number] [place] Specialti [id number] [place] dical es 198 [facility] 2020-07-26 2020-07-26 Outpatient R KELSEA [facility] [id number] Univers 13:45:00 13:45:00 NILE mccray [facility] 2020-07-26 2020-07-26 Office Kelsea [facility] [id number] Univers 13:14:20 13:29:20 Visit Nile Gregg [facility] [id number] it y of Surgical [id number] [place] Specialti [id number] [place] dical es 198 [facility] 2020-07-26 2020-07-26 Orders Doctor RADFORD 1.2.840.114 [id number] Univers 00:00:00 00:00:00 Only Unassigned, DUKE [id number] ity of [place] [facility] [id number] [place] as [phone] [facility] 009 [place] 2020-07-26 2020-07-26 Telephone Jason [facility] [id number] Univers 00:00:00 00:00:00 Kojo Jones Health [id number] it y of Surgical [id number] [place] Specialti [id number] [place] dical es 198 [facility] 2020-07-26 2020-07-26 Telephone Kelsea [facility] [id number] Univers 00:00:00 00:00:00 Nile Gregg Health [id number] it y of Surgical [id number] [place] as Specialti [id number] [place] dical es 198 [facility] 2020-07-23 2020-07-23 Emergency Jolly, [facility] [id number] Univers 10:58:00 12:29:00 Windy Gregg [place] [id number] i [id number] [id number] [facility] 084 [place] 2020-07-23 2020-07-23 Emergency X [facility] ERT [id number] Univers 10:48:00 10:48:00 ity of [facility] Results Test Description Test Time Test Comments Results Result Sour e Comments XR HAND <3 2020-09-0 Comminuted fracture Un iversity of RIGHT 6 of the proximal fifth [facility] Medical 20:00:38 metacarpal shows some Bra nch signs of healing XR HAND <3 2020-08-1 Comminuted fracture Un iversity of RIGHT 6 proximal fifth [facility] 20:45:30 metatacarpal with 2 Branc h pins in place show signs of callus formation. XR CHEST 1 2020-07-11 Impression: No acute U niversity of 0 cardiac pulmonary [facility] edical 19:03:48 abnormality.Exam: XR Bran CHEST 1 [...]
[2022-02-02] MEDS ORDERED: HYDROCODONE/APAP 5/325 MG TAB ONE (04:28)
--- NOTE | 2022-02-02 05:20 | ER ---
Nurse's Notes [facility] Name: Kenneth Franco Age: 41 yrs Sex: Male : 1980 Arrival Date: 02/02/2022 Time: 02:19 Bed 20 Private MD: Diagnosis: Other sprain of left foot Presentation: 02/02 02:42 Chief complaint: Patient states: he was surfing today and started having pain in his bb left foot which has gotten progressively worse at first he was able to bear weight but now the pain has gotten so bad he can not take it anymore. Coronavirus screen: At this time, the client does not indicate any symptoms associated with coronavirus-19. Ebola Screen: No symptoms or risks identified at this time. Initial Sepsis Screen: Does the patient meet any 2 criteria? No. Patient's initial sepsis screen is negative. Does the patient have a suspected source of infection? No. Patient's initial sepsis screen is negative. Risk Assessment: Do you want to hurt yourself or someone else?. Onset of symptoms was February 01, 2022. 02:42 Method Of Arrival: Wheelchair bb 02:42 Acuity: JERMAINE 3 bb Triage Assessment: 02:46 General: Appears uncomfortable, Behavior is calm, cooperative. Pain: Complains of pain bb in left foot Pain currently is 9 out of 10 on a pain scale. Neuro: Level of Consciousness is awake, alert, obeys commands, Oriented to person, place, time, situation. Cardiovascular: Capillary refill < 3 seconds Patient's skin is warm and dry. Respiratory: Respiratory effort is even, unlabored, Respiratory pattern is regular. GI: No signs and/or symptoms were reported involving the gastrointestinal system. Derm: Skin is pink, warm \T\ dry. Musculoskeletal: Circulation, motion, and sensation intact. Reports pain in left foot. Historical: - Allergies: 02:46 No Known Allergies; bb - Home Meds: 02:46 Adderall XR 20 mg Oral cp24 1 cap once daily [Active]; diazepam 5 mg Oral tab 1 tab as bb needed [Active]; - PMHx: 02:46 ADD/ADHD; left elbow tendonitis; bb - Immunization history:: Client reports having NOT received the Covid vaccine. - Social history:: Smoking status: Patient reports the use of cigarette tobacco products. Screenin:48 Abuse screen: Denies threats or abuse. Nutritional screening: No deficits noted. bb Tuberculosis screening: No symptoms or risk factors identified. Fall Risk None identified. Assessment: 02:48 Reassessment: No changes from previously documented assessment. Patient is alert, bb oriented x 3, equal unlabored respirations, skin warm/dry/pink. see triage assessment. 04:01 Reassessment: Patient is alert, oriented x 3, equal unlabored respirations, skin bb warm/dry/pink. awaiting diagnostic results. 06:03 Reassessment: Patient is alert, oriented x 3, equal unlabored respirations, skin bb warm/dry/pink. pt verbalized understanding of and agrees to plan of care discharge instructions given pt assisted to exit via wheelchair accompanied by air analysis technician. Splint to left lower extremity in place Patient states symptoms have not improved. Vital Signs: 02:42 BP 121 / 102; Pulse 57; Resp 16 S; Temp 97.8(O); Pulse Ox 99% on R/A; Weight 72.57 kg bb (R); Height 5 ft. 11 in. (180.34 cm) (R); Pain 9/10; 04:27 BP 130 / 108; Pulse 67; Resp 16 S; Pulse Ox 99% on R/A; bb 06:05 BP 116 / 73; Pulse 63; Resp 16 S; Pulse Ox 94% on R/A; Pain 8/10; bb 02:42 Body Mass Index 22.32 (72.57 kg, 180.34 cm) bb ED Course: 02:19 Patient arrived in ED. kz 02:46 Triage completed. bb 02:46 Arm band placed on Patient placed in an exam room. bb 02:48 Patient has correct armband on for positive identification. Bed in low position. Call bb light in reach. Side rails up X 1. 03:17 XRAY Foot LEFT 3 View In Process Unspecified. EDMS 03:30 Quincy Soto MD is Attending Physician. 7 04:01 Lorena Fletcher, J LUIS is Primary Nurse. bb 05:19 Moose Alvarenga DPM is Referral Physician. mh7 06:05 No provider procedures requiring assistance completed. Patient did not have IV access bb during this emergency room visit. Administered Medications: 04:27 Drug: HYDROcodone-acetaminophen 5 mg-325 mg 1 tabs Route: PO; bb 06:06 Follow up: Response: No adverse reaction bb Outcome: 05:20 Discharge ordered by . ced 06:05 Discharged to home via wheelchair, with crutches, with friend. bb 06:05 Condition: stable 06:05 Discharge instructions given to patient, Instructed on discharge instructions, follow up and referral plans. medication usage, Demonstrated understanding of instructions, follow-up care, Prescriptions given X 1. 06:06 Patient left the ED. bb Signatures: Dispatcher [employer] Lorena Love RN RN bb Quincy Soto MD MD mh7 Zapata, Kelly kz Corrections: (The following items were deleted from the chart) 06:05 06:03 Reassessment: Patient is alert, oriented x 3, equal unlabored respirations, skin bb warm/dry/pink. pt verbalized understanding of and agrees to plan of care discharge instructions given pt assisted to exit via wheelchair accompanied by air analysis technician Patient states symptoms have not improved. bb
--- NOTE | 2022-02-02 05:21 | EDPHYS ---
Physician Documentation [facility] Name: Kenneth Franco Age: 41 yrs Sex: Male : 1980 Arrival Date: 02/02/2022 Time: 02:19 Bed 20 Private MD: ELIAN Physician Quincy Soto HPI: 02/02 04:05 This 41 yrs old Male presents to ER via Wheelchair with complaints of Foot Pain - mh7 Swelling,left. 04:05 The patient presents with pain, that is acute. The complaints affect the left foot. mh7 Context: [place] resulted from an unknown cause, Mechanism of Injury: Unknown the patient can fully bear weight, the patient is able to ambulate, with moderate difficulty. Onset: The symptoms/episode began/occurred yesterday. Modifying factors: The symptoms are alleviated by nothing, the symptoms are aggravated by weight bearing. Associated signs and symptoms: Pertinent positives: swelling, Pertinent negatives: calf tenderness, fever, nausea, numbness, rash, tingling, vomiting, warmth, weakness. Severity of symptoms: At their worst the symptoms were moderate, last night, in the emergency department the symptoms are unchanged. Historical: - Allergies: 02:46 No Known Allergies; bb - Home Meds: 02:46 Adderall XR 20 mg Oral cp24 1 cap once daily [Active]; diazepam 5 mg Oral tab 1 tab as bb needed [Active]; - PMHx: 02:46 ADD/ADHD; left elbow tendonitis; bb - Immunization history:: Client reports having NOT received the Covid vaccine. - Social history:: Smoking status: Patient reports the use of cigarette tobacco products. ROS: 04:05 Constitutional: Negative for fever, chills, and weight loss, Eyes: Negative for injury, mh7 pain, redness, and discharge, ENT: Negative for injury, pain, and discharge, Neck: Negative for injury, pain, and swelling, Cardiovascular: Negative for chest pain, palpitations, and edema, Respiratory: Negative for shortness of breath, cough, wheezing, and pleuritic chest pain, Abdomen/GI: Negative for abdominal pain, nausea, vomiting, diarrhea, and constipation, Back: Negative for injury and pain, : Negative for injury, bleeding, discharge, and swelling, Skin: Negative for injury, rash, and discoloration, Neuro: Negative for headache, weakness, numbness, tingling, and seizure, Psych: Negative for depression, anxiety, suicide ideation, homicidal ideation, and hallucinations, Allergy/Immunology: Negative for hives, rash, and allergies, Endocrine: Negative for neck swelling, polydipsia, polyuria, polyphagia, and marked weight changes, Hematologic/Lymphatic: Negative for swollen nodes, abnormal bleeding, and unusual bruising. Exam: 04:05 Head/Face: Normocephalic, atraumatic. Eyes: Pupils equal round and reactive to light, mh7 extra-ocular motions intact. Lids and lashes normal. Conjunctiva and sclera are non-icteric and not injected. Cornea within normal limits. Periorbital areas with no swelling, redness, or edema. Neck: Trachea midline, no thyromegaly or masses palpated, and no cervical lymphadenopathy. Supple, full range of motion without nuchal rigidity, or vertebral point tenderness. No Meningismus. Chest/axilla: Normal chest wall appearance and motion. Nontender with no deformity. No lesions are appreciated. Cardiovascular: Regular rate and rhythm with a normal S1 and S2. No gallops, murmurs, or rubs. Normal PMI, no JVD. No pulse deficits. Respiratory: Lungs have equal breath sounds bilaterally, clear to auscultation and percussion. No rales, rhonchi or wheezes noted. No increased work of breathing, no retractions or nasal flaring. Abdomen/GI: Soft, non-tender, with normal bowel sounds. No distension or tympany. No guarding or rebound. No evidence of tenderness throughout. Back: No spinal tenderness. No costovertebral tenderness. Full range of motion. Skin: Warm, dry with normal turgor. Normal color with no rashes, no lesions, and no evidence of cellulitis. 04:05 Neuro: Awake and alert, GCS 15, oriented to person, place, time, and situation. Cranial nerves II-XII grossly intact. Motor strength 5/5 in all extremities. Sensory grossly intact. Cerebellar exam normal. Normal gait. Psych: Awake, alert, with orientation to person, place and time. Behavior, mood, and affect are within normal limits. 04:05 Constitutional: The patient appears in no acute distress, alert, awake, uncomfortable. 04:05 Musculoskeletal/extremity: Extremities: noted in the left foot: pain, swelling, tenderness, ROM: limited active range of motion due to pain, in the left foot, limited passive range of motion due to pain, in the left foot, Circulation is intact in all extremities. Sensation intact. Compartment Syndrome exam of affected extremity: is normal. no numbness, no tingling, no sensation deficit, no palor, no weak pulses, Joints: All joints appear normal with full range of motion. Weight bearing: able to fully bear weight, Tendon exam: specific tendon testing normal through active and passive range of motion Calves: are non-tender, have equal circumference. Vital Signs: 02:42 BP 121 / 102; Pulse 57; Resp 16 S; Temp 97.8(O); Pulse Ox 99% on R/A; Weight 72.57 kg bb (R); Height 5 ft. 11 in. (180.34 cm) (R); Pain 9/10; 04:27 BP 130 / 108; Pulse 67; Resp 16 S; Pulse Ox 99% on R/A; bb 06:05 BP 116 / 73; Pulse 63; Resp 16 S; Pulse Ox 94% on R/A; Pain 8/10; bb 02:42 Body Mass Index 22.32 (72.57 kg, 180.34 cm) Procedures: 05:25 Splinting: Splint applied to left lower extremity using Orthoglass splint, applied by [facility] tech. Examined by me, post splint application: neurovascular intact, 2+ distal pulses palpable, brisk capillary refill noted, Patient tolerated well. MDM: 05:18 Differential diagnosis: fracture, sprain, foreign body, arthritis, cellulitis. Data [facility] reviewed: vital signs, nurses notes, radiologic studies, plain films. Data interpreted: Pulse oximetry: on room air is 99 %. Interpretation: normal. Counseling: I had a detailed discussion with the patient and/or guardian regarding: the historical points, exam findings, and any diagnostic results supporting the discharge/admit diagnosis, radiology results, the need for outpatient follow up, a petroleum refining equipment operator, to return to the emergency department if symptoms worsen or persist or if there are any questions or concerns that arise at home. Response to treatment: the patient's symptoms have markedly improved after treatment. 05:20 Patient medically screened. [facility] 02/02 02:51 Order name: XRAY Foot LEFT 3 View 02/02 05:15 Order name: Splint - Ankle: Posterior; Complete Time: 06:04 [facility] 02/02 05:15 Order name: Crutches; Complete Time: 06:04 [facility] Administered Medications: : Drug: HYDROcodone-acetaminophen 5 mg-325 mg 1 tabs Route: PO; 06:06 Follow up: Response: No adverse reaction bb Disposition Summary: 02/02/22 05:20 Discharge Ordered Location: Home [facility] Problem: new [facility] Symptoms: have improved [facility] Condition: Stable [facility] Diagnosis - Other sprain of left foot [facility] Followup: [facility] - With: Private Physician - When: 1 - 2 days - Reason: Worsening of condition, Recheck today's complaints, Continuance of care, Re-evaluation by your physician Followup: [facility] - With: Moose Alvarenga DPM - When: 1 - 2 days - Reason: Worsening of condition, Recheck today's complaints Discharge Instructions: - Discharge Summary Sheet [facility] - Foot Sprain [facility] - Crutch Use, Adult, [id number] [facility] - Cast or Splint Care, Adult, [id number] [facility] Forms: - Medication Reconciliation Form [facility] - Thank You Letter [facility] - Antibiotic Education [facility] - Prescription Opioid Use [facility] Prescriptions: - ketorolac 10 mg Oral tablet - take 1 tablet by ORAL route every 6 hours As needed not to exceed 40 mg in [facility] 24hrs; 15 tablet; Refills: 0, Product Selection Permitted Signatures: Dispatcher [employer] Lorena Love RN RN bb Holmes, Maurice, MD MD [facility]
[2022-02-02 06:16] VITALS: TEMP 97.8
[2022-02-02 06:20] VITALS: BP 116/73; O2SAT 94
--- NOTE | 2022-02-02 11:33 | RAD REPORT ---
EXAM DESCRIPTION: RAD - Foot Left 3 View - 02/02/2022 3:15 am CLINICAL HISTORY: 41 years, Male, Pain COMPARISON: None. FINDINGS: 3 X-ray views of the left foot (Frontal, lateral and oblique views) were performed. No acute bony injuries were demonstrated. No gross articular or soft tissue abnormality is identifi ed. There are no gross intraosseous lesions. No periosteal reaction were seen. IMPRESSION: No acute bony injuries were demonstrated. Electronically signed by: Cesar Scott MD 02/02/2022 3:56 AM CDT Due to temporary technical issues with the PACS/Fluency reporting system, reports are being signed by the in house radiologist without review as a courtesy to ensure prompt reporting. The interpreting r adiologist is fully responsible for the content of the report.
== END 2022-02-02 06:06 | disposition home or self-care (01) ==
LOC: ER 02:15
PROC: 2W3RX1Z Immobilization of Left Lower Leg using Splint (ICD-10-PCS; principal; 2022-02-02)
DX: S93.692A Other sprain of left foot, initial encounter (principal); Z72.0 Tobacco use
CPT/HCPCS: 99283